=== PATIENT | male | born 1975 | race Caucasian/White ===

== ENCOUNTER 2024-10-28 10:27 | Emergency (ER) | payer BC, SELFPAY ==
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
[2024-10-28] VITALS (9 sets, daily range): BP systolic 106–140; BP diastolic 71–85; PULSE 57–85; RESP 14–15; TEMP 36.6–36.7; O2SAT 94–99; BMI 24.3
--- OUTSIDE RECORDS SUMMARY | 2024-10-28 10:42 | XMS_ITS | Encounter Summary ---
Author Organization [employer] ([place], [place], [place], [place]) Address [address] [place] [address] Care Team Providers Care Chief Transfer And Pumphouse Operator Name Role Phone Rajani Shaw PA-C Primary Care Provider [phone] Encounter Details Date Type Department Care Team (Late st Contact Info) Description 03/16/2023 Outside [facility] [address] [place] [address] Rajani Shaw PA-C [address] [facility] [address] [place] [address] Social History Tobacco Use Types Packs/Day Years Used Date Smoking Tobacco: Never Smokeless Tobacco: Never Alcohol Use Standard Drinks/Week Comments Not Currently 0 (1 standard drink = 0.6 oz pur e alcohol) Family and Community Support Answer Albino e Recorded Help with Day to Day Activities Not on file 03/04/2023 Feeling Lonely or Isolated Not on file 03/04 Educational Attainment Answer Date Sincere rded Speak language other than Syrian at home Not on file 03/04/2023 Want [...] on file documented as of this encounter Plan of Treatment Not on file documented as of this encounter Visit Diagnoses Not on filedocumented in this encounter Care Teams Chief Transfer And Pumphouse Operator Relationship Specialty Start Date End Date Rajani Shaw PA-C [address] [phone] PCP - General Family Medicine 05/21/22 documented as of this encounter
--- OUTSIDE RECORDS SUMMARY | 2024-10-28 10:42 | XMS_ITS | Clinical Summary ---
Author Organization Healthcare Address [address] [id number] Care Team Providers Care Nanoscience Technician Name Role Phone Rajani Shaw Primary Care Provider [phone] Allergies Active Allergy Reactions Criticality Noted Date Comments Promethazine Diarrhea Low 10/22/2011 Medications amoxicillin-cl avulanate (Augmentin) 875-125 MG tablet 08/14/19 22 Active ciprofloxacin (Cipro) 500 MG tablet 01/26/20 21 Active cyclobenzaprin e (Flexeril) 10 MG tablet cyclobenzaprine 10 mg tablet Active diazePAM (Valium) 10 MG tablet diazepam 10 mg tablet Active predniSONE (Deltasone) 20 MG tablet 08/14/19 22 Active telmisartan (MIcarDIS) 40 MG tablet telmisartan 40 mg tablet Active testosterone cypionate (Depo-Testoste ana maria) 200 MG/ML injection testosterone cypionate 200 mg/mL intramuscular oil Active Social History Tobacco Use Types Packs/Day Years Used Date Smoking Tobacco: Never Smokeless Tobacco: Never Tobacco Cessation:Counseling Given: Not Answered Alcohol Use Standard Drinks/Week Comments Never 0 (1 standard drink = 0.6 oz pur e alcohol) Sex and Gender Information Value Date Recorded Sex Assigned at Not on file Legal Sex Male 8:32 PM EDT Gender Identity Not on file Sexual Orientation Not on file Last Filed Vital Signs Vital Sign Reading Time Taken Comments Blood Pressure 110/64 10/31/2021 1:27 PM EDT Pulse 63 10/31/2021 1:27 PM EDT Temperature - - Respiratory Rate 16 10/31/2021 1:27 PM EDT Oxygen Saturation 96% 10/31/2021 1:27 PM EDT Inhaled Oxygen Concentration - - Weight 81.6 kg (180 lb) 10/31/2021 1:27 PM EDT Height 177.8 cm (5' 10 ) 10/31/2021 1:27 PM EDT Body Mass Index 25.83 10/31/2021 1:27 PM EDT Plan of Treatment Health Maintenance Due Date Last Done Comments [facility]-Depression Screening 1974 [facility]-/Child/Adol SDOH Screenings 1974 [facility]- SDOH Screenings 1992 [facility]-Adult SDOH Screenings 1992 [facility]-DTaP,Tdap,and Td Vaccine s (1 - Tdap) 1993 [facility]-Hepatitis B Vaccines (2 of 3 - 19+ 3-dose series) 03/25/2001 02/25/2001 CT Colonography 05/28/2019 Colonoscopy 05/28/2019 FIT-DNA 05/28/2019 FIT 05/28/2019 FOBT 05/28/2019 Sigmoidoscopy 05/28/2019 [facility]-Colorectal Cancer Screening 05/28/2019 [facility]-Pneumococcal Vaccine: 50 + Years (1 of 1 - PCV) 2024 [facility]-Zoster Vaccines (1 of 2) 2024 ORE-[id number]-80 Vaccine (2 - 20 25-26 season) 2024 02/28/2021 [facility]-Influenza Vaccine (#1) 2024 HPV Vaccines Aged Out No longer eligi ble based on patient's age to complete this topic [facility]-HIB Vaccines Aged Out No longer e ligible based on patient's age to complete this topic [facility]-Hepatitis A Vaccines Aged Out No longer eligible based on patient's age to complete this topic [facility]-IPV Vaccines Aged Out No longer e ligible based on patient's age to complete this topic [facility]-Rotavirus Vaccines Aged Out No lo nger eligible based on patient's age to complete this topic Insurance MARIA EUGENIA Care Teams Nanoscience Technician Relationship Specialty Start Date End Date Rajani Shaw PA [address] [place] [address] PCP - General 10/31/21
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
--- OUTSIDE RECORDS SUMMARY | 2024-10-28 10:42 | XMS_ITS | Encounter Summary ---
Author Organization [employer] ([place], [place], [place], [place]) Address [address] [place] [address] Care Team Providers Care Carbon Paper Machine Operator Name Role Phone Rajani Shaw PA-C Primary Care Provider [phone] Encounter Details Date Type Department Care Team (Latest Contact Info) Description 10/27/2024 Travel Social History Tobacco Use Types Packs/Day Years [...] Date Sincere rded Speak language other than Tuvaluan at home Not on file 03/04/2023 Want [...] on filedocumented in this encounter Care Teams Carbon Paper Machine Operator Relationship Specialty Start Date End Date Rajani Shaw PA-C [address] [facility] [address] [place] [address] PCP - General Family Medicine 05/21/22 documented as of this encounter
--- OUTSIDE RECORDS SUMMARY | 2024-10-28 10:42 | XMS_ITS | Encounter Summary ---
Author Organization Healthcare Address [address] [phone] Care Team Providers Care Account Services Specialist Name Role Phone Brett Shepherd MD Primary Care Provider [phone] Rajani Shaw Primary Care Provider [phone] Reason for Referral * Consultation (Routine) - Closed Specialty Diagnoses / Procedures Referred By Contmike t Referred To Contact Neurosurgery Diagnoses Cervicalgia Rajani Shaw PA [address] [place] [address] Phone: tel: fax: Referral ID Status Reason Start Date Expiration Date V isits Requested Visits Authorized [id number] Closed Specialty Services Required 10/22/2021 04/23/2023 1 1 Encounter Details Date Type Department Care Team (Late st Contact Info) Description 10/22/2021 Community [facility] Community [facility] [address] [place] [address] Rajani Shaw PA [address] [place] [address] Cervicalgia (Primary Dx) Social History Tobacco Use Types Packs/Day Years Used Date Smoking Tobacco: Never Assessed Sex and Gender Information Value Date Recorded Sex Assigned at Not on file Legal Sex Male 8:32 PM EDT Gender Identity Not on file Sexual Orientation Not on file documented as of this encounter Plan of Treatment Scheduled Referrals Name Type Priority Associated Diagnoses Order Schedule Ambulatory Referral to Neurosurgery Outpatient Referral Routine Cervicalgia Expected: 10/22/2021 (Approximate), Expires: 04/22/2023 documented as of this encounter Visit Diagnoses Diagnosis Cervicalgia- Primary documented in this encounter Care Teams Account Services Specialist Relationship Specialty Start Date End Date Brett Shepherd MD [address] [place] [address] PCP - General 06/28/20 10/30/21 Rajain Sahw PA [address] [place] [address] PCP - General 10/31/21 documented as of this encounter
--- OUTSIDE RECORDS SUMMARY | 2024-10-28 10:42 | XMS_ITS | Encounter Summary ---
Author Organization [employer] ([place], [place], [place], [place]) Address [address] [place] [address] Care Team Providers Care Phlebotomy Tech Name Role Phone Rajani Shaw PA-C Primary Care Provider [phone] Reason for Referral * Consultation (Routine) - Closed Specialty Diagnoses / Procedures Referred By Oralia trotter Referred To Contact Physical Therapy Diagnoses Arthritis of shoulder region, left Gonzalez Medellin PA-C [address] [place] [address] Phone: tel: fax: Referral ID Status Reason Start Date Expiration Date V isits Requested Visits Authorized [id number] Closed Specialty Services Required 01/07/2024 02/15/2024 60 60 Encounter Details Date Type Department Care Team (Late st Contact Info) Description 01/06/2024 Outside Orders [facility] OP Physical Therapy [address] [place] [phone] Gonzalez Medellin PA-C [address] [place] [address] Arthritis of shoulder region, left (Primary Dx) Social History Tobacco Use Types [...] Date Sincere rded Speak language other than Estonian at home Not on file 03/04/2023 Want [...] Scheduled Referrals Name Type Priority Associated Diagnoses Orde r Schedule AMB REFERRAL TO PHYSICAL THERAPY EVALUATE, TREAT AND PLAN OF CARE Outpatient Referral Routine Arthritis of shoulder region, left Expected: 01/06/2024, Expires: 01/05/2025 documented as of this encounter Visit Diagnoses Diagnosis Arthritis of shoulder region, left- Primary documented in this encounter Care Teams Phlebotomy Tech Relationship Specialty Start Date End Date Rajani Shaw PA-C [address] [facility] [address] [place] [phone] PCP - General Family Medicine 05/21/22 documented as of this encounter
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
--- NOTE | 2024-10-28 11:24 | ECG_ITS ---
APPROVED REPORT Exam: Resting ECG HR:59 bpm ECG Measurements Heart Rate 59 AXES DE 145 P 52 QRSd 98 QRS 82 QT 392 T 46 QTc 391 Conclusion SINUS BRADYCARDIA BORDERLINE ECG UNCONFIRMED REPORT Sinus bradycardia. No ST elevation or depression. Electronically signed by : NELSY HWANG, 10/31/2024 06:59:35
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
[2024-10-28 11:45] LABS: Microscopic, Urine URINE MICROSCOPIC (MICROSCOPIC)
[2024-10-28 11:50] LABS: Hematocrit 43.5 % (42.0-52.0); Hemoglobin 14.0 g/dL (14.1-18.0); Immature Granulocytes % 0.2 %; Mean Corpuscular HGB Conc 32.2 g/dL (31.8-35.4); Mean Corpuscular Hemoglobin 28.7 pg (27.0-31.2); Mean Corpuscular Volume 89.3 fl (80-94); Nucleated Red Blood Cells % 0 %; Platelet Count 203 K/mm3 (142-424); Red Blood Count 4.87 M/mm3 (4.60-6.20); Red Cell Distribution Width-SD 51.5 fL; White Blood Count 8.4 K/mm3 (4.8-10.8)
[2024-10-28 11:56] LABS: Alanine Aminotransferase 35 U/L (12-78); Albumin Level 4.1 g/dl (3.5-5.0); Albumin/Globulin Ratio 1.5 (1.1-1.8); Alkaline Phosphatase 53 U/L (38-126); Anion Gap 10.5 mEq/L (5-15); Aspartate Amino Transferase 41 U/L (17-59); Bilirubin,Total 0.4 mg/dl (0.2-1.3); Blood Urea Nitrogen 33 mg/dl (9-20); Calcium 8.4 mg/dl (8.4-10.2); Carbon Dioxide 26 mmol/L (22.0-30.0); Chloride 106 mmol/L (98-107); Creatinine Clearance Estimated 107 mL/min (50-200); Creatinine,Serum 0.90 mg/dl (0.66-1.25); Estimated Glomerular Filt Rate 89 ml/min (>60); GFR (African American) 108 ML/MIN (>60); Globulin 2.7 g/dL (1.3-3.2); Glucose 94 mg/dl (74-100); Lipase 307 U/L (23-300); Potassium 4.5 mmoL/L (3.5-5.1); Sodium 138 mmol/L (136-145); Total Protein,Serum 6.8 g/dl (6.3-8.2)
[2024-10-28 11:58] LABS: Bilirubin,Urine Negative (Negative); Color,Urine YELLOW (Yellow); Glucose,Urine (UA) Negative (Negative); Ketones,Urine TRACE (Negative); Leukocyte Esterase,Urine Negative (Negative); PH,Urine 6.0 (5.0-8.5); Protein,Urine Negative (Negative); Specific Gravity, Urine 1.020 (1.005-1.030); Urobilinogen,Urine 0.2 EU/dl (0.2)
[2024-10-28 11:59] LABS: Activated Partial Thrombo Time 26.6 seconds (22.8-30.6); INR 1.06 (0.9-1.1); Prothrombin Time 11.7 seconds (10.1-12.5)
[2024-10-28 12:09] LABS: Troponin I < 0.01 ng/ml (0.00-0.034)
[2024-10-28] MEDS: IOPAMIDOL-370 (76%);100ML BOTTLE 80 ML IV (12:36)
[2024-10-28] MEDS: 0.9 % SODIUM CHLORIDE 50 ML VIAL IV (12:36)
[2024-10-28] MEDS: SODIUM CHLORIDE 0.9% 10ML SYR (RAD ONLY) 10 ML IV (12:36)
[2024-10-28 13:29] LABS: Hepatitis C Ab Qual. W/ RFX NEGATIVE (Negative)
== END 2024-10-28 14:09 | disposition home or self-care (01) ==
PROVIDERS: Emergency Provider Student in an Organized Health Care Education/Training Program; PCP Physician Assistant
DX: R07.81 Pleurodynia (principal); M54.6 Pain in thoracic spine; M54.2 Cervicalgia; M54.50 Low back pain, unspecified; I10 Essential (primary) hypertension; V43.52XA Car driver injured in collision with other type car in traffic accident, initial encounter
CPT/HCPCS: 70450; 71275; 72125; 72128; 72131; 72170; 74174; 80053; 81001; 83605; 83690; 84484; 85025; 85610; 85730; 86803; 87389; 93005; 99285; Q9967